=== PATIENT | female | born 1985 | race Caucasian/White ===

== ENCOUNTER 2019-03-28 08:49 | Emergency (ER) | payer SELFPAY ==
[~2019-03-28] VITALS: Ht 162.6 cm; Wt 99.1 kg
[2019-03-28 08:56] VITALS: BP 141/91; TEMP 97.4
[2019-03-28] MEDS ORDERED: PRINIVIL10 MG PO (09:34)
[2019-03-28] MEDS ORDERED: NEXPLANON68 MG ID (09:34)
[2019-03-28 10:45] VITALS: PULSE 98
[2019-03-28] MEDS ORDERED: TAMIFLU 75MG75 MG PO (10:49)
== END 2019-03-28 10:50 | disposition home or self-care (01) ==
LOC: COL.ER 08:49
DX: J09.X2 Influenza due to identified novel influenza A virus with other respiratory manifestations (principal); I10 Essential (primary) hypertension